=== PATIENT | female | born 1995 | race African-American/Black ===

== ENCOUNTER 2016-09-25 15:18 | Outpatient (CLI) | payer MEDICAID ==
[2016-09-25 15:52] VITALS: BP 123/77
== END 2016-09-25 17:26 | disposition home or self-care (01) ==
LOC: TRG 15:18
PROVIDERS: ATTEND Obstetrics & Gynecology
DX: O47.1 False labor at or after 37 completed weeks of gestation (principal); Z3A.40 40 weeks gestation of pregnancy
CPT/HCPCS: 59025

== ENCOUNTER 2017-07-31 09:08 | Inpatient (IN) | payer OTHER ==
[2017-07-31] MEDS ORDERED: NACL 0.9% 1000 ML 1,000 ML IV ONE ×2 (09:35→12:50)
--- NOTE | 2017-07-31 09:35 | Emergency Department Report ---
HPI - General Time Seen by Provider: 07/31/17 09:20 - HPI HPI: 22-year-old female presents to the emergency department via EMS from home with some erratic, belligerent and altered behavior. EMS has a agitated delirium protocol through their medical records secretary, leslie Israel, and therefore the patient received 5 of Haldol, 50 of Benadryl, and 5 of Versed, prior to arrival. The patient is currently sedated, sleeping, and is a poor historian. Per EMS, they asked the family if she does any drugs in the family said "yes, all of them." The patient has been seen here before and does have a history of substance abuse. ED Past Medical Hx - Past Medical History Hx Hypertension: No Hx Congestive Heart Failure: No Hx Diabetes: No Hx Deep Vein Thrombosis: No Hx Renal Disease: No Hx Sickle Cell Disease: No Hx Seizures: No Hx Asthma: No Hx COPD: No Hx HIV: No - Social History Smoking Status: Current Some Day Smoker - Medications Home Medications: Home Medications Medication Instructions Recorded Confirmed Last Taken Type No Known Home Medications [No 07/31/17 07/31/17 Unknown History Reported Home Medications] ED Review of Systems ROS: Stated complaint: AMS Other details as noted in HPI Comment: Unobtainable due to pts medical conditions Physical Exam - Physical Exam Physical Exam: GENERAL: The patient is well-developed well-nourished. HENT: Normocephalic. Atraumatic. Patient has moist mucous membranes. EYES: Pupils equal reactive to light bilaterally. NECK: Supple. Trachea is midline. CHEST/LUNGS: Clear to auscultation. There is no respiratory distress noted. HEART/CARDIOVASCULAR: Regular. There is mild to moderate tachycardia. There is no murmur. ABDOMEN: Abdomen is soft, nontender. Patient has normal bowel sounds. There is no abdominal distention. SKIN: Skin is warm and dry. NEURO: Patient is altered versus sedated. She will briefly open her eyes and withdraw to painful stimuli only. Nonverbal. Not following any commands. MUSCULOSKELETAL: There is no tenderness or deformity. There is no evidence of acute injury. ED Medical Decision Making - Lab Data Result diagrams: 07/31/17 09:39 07/31/17 09:39 - EKG Data -: EKG Interpreted by Me EKG shows normal: sinus rhythm, axis, intervals, QRS complexes, ST-T waves ( flattened or inverted t waves throughout the precordial leads) Rate: tachycardia (121 bpm) - EKG Data When compared to previous EKG there are: previous EKG unavailable Interpretation: other (sinus tachycardia, nonspecific T waves changes) - Radiology Data Radiology results: report reviewed CT HEAD WITHOUT CONTRAST: HISTORY: Altered mental status. TECHNIQUE: Sequential 2.5mm CT images. COMPARISON: 04/23/14. FINDINGS: Cerebral Parenchyma: Within normal limits. Cerebellum: Within normal limits. Brainstem: Within normal limits. Ventricles: Normal. Sella: Normal. Extra-axial spaces: Normal. Basal Cisterns: Normal. Intracranial Hemorrhage: None. Midline Shift: None. Calvarium: Normal. Sinuses: Normal. Mastoid Air Cells: Normal. Visualized Orbits: Normal. IMPRESSION: Cranial CT scan within normal limits. Transcribed By: TTR Dictated By: FRANCE LANDIN JR, MD Electronically Authenticated By: FRANCE LANDIN JR, MD Signed Date/Time: 07/31/17 1045 - Medical Decision Making Patient presents to the emergency department ulcer versus sedated however the patient did receive Haldol, Versed and Benadryl. Prior to this allegedly she was very combative and belligerent but may have been altered at that time as well. CT head does not show any bleed, shift, mass or any acute process. The majority of the patient's labs were unremarkable except for a urine drug screen positive for methamphetamines, cocaine and benzodiazepines and there is a slight elevation of her CK level. She was given 2 L of IV fluid. She has been in the emergency department for about 6 hours and has not yet become awake and alert. She will be admitted to the hospital for further evaluation and treatment. It should be noted that the patient's pre-arrival cocktail for agitated delirium is a "protocol" from their director telecommunications. - Differential Diagnosis polysubstance abuse, bipolar disorder, CVA, TIA Critical Care Time: No Critical care attestation.: If time is entered above; I have spent that time in minutes in the direct care of this critically ill patient, excluding procedure time. ED Disposition Clinical Impression: Polysubstance abuse Altered mental status Qualifiers: Altered mental status type: unspecified Qualified Code(s): R41.82 - Altered mental status, unspecified Disposition: DC-09 OP ADMIT IP TO THIS HOSP Is pt being admited?: Yes Condition: Fair Time of Disposition: 15:15
[2017-07-31 09:55] LABS: Basophils % (Auto) 0.3 % (0.0-1.8); Eosinophils # (Auto) 0.2 K/mm3 (0.0-0.4); Eosinophils % (Auto) 1.6 % (0.0-4.3); Hematocrit 37.8 % (30.3-42.9); Hemoglobin 12.9 gm/dl (10.1-14.3); Lymphocytes # (Auto) 2.5 K/mm3 (1.2-5.4); Lymphocytes % (Auto) 25.8 % (13.4-35.0); Mean Corpuscular HGB Conc 34 % (30-34); Mean Corpuscular Hemoglobin 30 pg (28-32); Mean Corpuscular Volume 87 fl (79-97); Monocytes # (Auto) 0.8 K/mm3 (0.0-0.8); Monocytes % (Auto) 8.4 % (0.0-7.3); Platelet Count 418 K/mm3 (140-440); Red Blood Count 4.37 M/mm3 (3.65-5.03); Red Cell Distribution Width 13.2 % (13.2-15.2)
[2017-07-31 10:07] LABS: Bilirubin,Urine NEG (Negative); Blood,Urine NEG (Negative); Color,Urine Yellow (Yellow); Mucus,Urine 3+ /HPF; RBC,Urine < 1.0 /HPF (0.0-6.0)
[2017-07-31 10:27] LABS: Cannabinoid Screen,Urine PRESUMPTIVE NEGATIVE; Methadone Screen,Urine PRESUMPTIVE NEGATIVE; Opiate Screen,Urine PRESUMPTIVE NEGATIVE
[2017-07-31 10:42] LABS: Alanine Aminotransferase 9 units/L (7-56); Albumin 3.6 g/dL (3.9-5); BUN/Creatinine Ratio 14; Blood Urea Nitrogen 11 mg/dL (7-17); Calcium 8.6 mg/dL (8.4-10.2); Hemolysis Index 9
[2017-07-31 10:53] LABS: Amphetamine Screen,Urine PRESUMPTIVE POSITIVE; Benzodiazepines Screen,Urine PRESUMPTIVE POSITIVE; Cocaine Screen,Urine PRESUMPTIVE POSITIVE
--- NOTE | 2017-07-31 10:53 | Cat Scan Report ---
CT HEAD WITHOUT CONTRAST: HISTORY: Altered mental status. TECHNIQUE: Sequential 2.5mm CT images. COMPARISON: 04/23/14. FINDINGS: Cerebral Parenchyma: Within normal limits. Cerebellum: Within normal limits. Brainstem: Within normal limits. Ventricles: Normal. Sella: Normal. Extra-axial spaces: Normal. Basal Cisterns: Normal. Intracranial Hemorrhage: None. Midline Shift: None. Calvarium: Normal. Sinuses: Normal. Mastoid Air Cells: Normal. Visualized Orbits: Normal. IMPRESSION: Cranial CT scan within normal limits.
--- NOTE | 2017-07-31 14:40 | History and Physical Report ---
History of Present Illness Chief complaint: Confusion History of present illness: 22 YO Female with Nicotine Dependence, Polysubstance Abuse presents to ED for evaluation. Pt is confused, lethargic and unable to provide history. Pt history provided by family who is at bedside during exam and interview. As per family, the patient has experienced confusion, and displayed erratic, belligerent and altered behavior. EMS was notified, and upon arrival the patient was found to be encephalopathic. Pt transported to [facility] for further care and evaluation. Pt seen and evaluated in ED and found to be encephalopathic. Pt initiated on CIWA protocol. Pt admitted to medical floor. Past History Past Medical History: other (Nicotine Dependence, Polysubstance Abuse) Past Surgical History: No surgical history Social history: single Family history: no significant family history, other (reviewed) Medications and Allergies Allergies Allergy/AdvReac Type Severity Reaction Status Date / Time No Known Allergies Allergy Verified 10/17/16 09:38 Home Medications Medication Instructions Recorded Confirmed Last Taken Type No Known Home Medications [No 07/31/17 07/31/17 Unknown History Reported Home Medications] Review of Systems ROS unobtainable: due to mental status Exam - Constitutional Vitals: Temp Pulse Resp BP Pulse Ox 99 F 120 H 18 122/66 99 07/31/17 09:41 07/31/17 09:41 07/31/17 09:41 07/31/17 09:41 07/31/17 09:41 General appearance: Present: mild distress - EENT Eyes: Present: miosis ENT: hearing intact, clear oral mucosa - Neck Neck: Present: supple, normal ROM - Respiratory Respiratory effort: normal Respiratory: bilateral: CTA - Cardiovascular Heart Sounds: Present: S1 & S2. Absent: rub, click - Extremities Extremities: pulses symmetrical, No edema Peripheral Pulses: within normal limits - Abdominal General gastrointestinal: Present: soft, non-tender, non-distended, normal bowel sounds Female genitourinary: Present: normal - Integumentary Integumentary: Present: clear, dry, clammy, decreased turgor - Musculoskeletal Musculoskeletal: generalized weakness - Psychiatric Psychiatric: no intact judgment & insight, no memory intact - Neurologic Neurologic: no gait normal Results - Labs CBC & Chem 7: 07/31/17 09:39 07/31/17 09:39 Labs: Abnormal lab results 07/31/17 07/31/17 07/31/17 Range/Units 09:39 09:39 09:39 [place] % (Auto) 8.4 H (0.0-7.3) % Sodium 146 H (137-145) mmol/L Chloride 107.7 H (98-107) mmol/L Total Creatine Kinase (30-135) units/L Albumin 3.6 L (3.9-5) g/dL Acetaminophen < 5.0 L (10.0-30.0) ug/mL 07/31/17 Range/Units 09:39 [place] % (Auto) (0.0-7.3) % Sodium (137-145) mmol/L Chloride (98-107) mmol/L Total Creatine Kinase 917 H (30-135) units/L Albumin (3.9-5) g/dL Acetaminophen (10.0-30.0) ug/mL Assessment and Plan - Patient Problems (1) Encephalopathy Current Visit: Yes Status: Acute Plan to address problem: CT head, neuro checks, ciwa protocol, seizure precautions, supportive care. (2) Polysubstance abuse Current Visit: Yes Status: Acute Plan to address problem: CIWA protocol, banana bag, (3) Psychosis Current Visit: Yes Status: Acute Qualifiers: Psychosis type: brief psychotic disorder Qualified Code(s): F23 - Brief psychotic disorder Plan to address problem: CT head, Psych consulted, (4) Nicotine dependence Current Visit: Yes Status: Acute Qualifiers: Substance use status: in withdrawal Plan to address problem: supportive care, (5) DVT prophylaxis Current Visit: Yes Status: Acute Plan to address problem: SCD to BLE while in bed.
[2017-07-31] MEDS ORDERED: ZOFRAN IV PRN (14:41)
[2017-07-31] MEDS ORDERED: SODIUM CHLORIDE FLUSH SYRINGE 10 ML IV PRN (14:41)
[2017-07-31] MEDS ORDERED: PROVENTIL IH PRN (14:41)
[2017-07-31] MEDS ORDERED: TYLENOL PO PRN (14:41)
[2017-07-31] MEDS ORDERED: ATIVAN IV PRN (14:44)
[2017-07-31] MEDS ORDERED: VITAMIN B-1 100 MG, FOLVITE 1 MG, INFUVITE 10 ML in NACL 0.9% 1000 ML 1,000 ML IV ONE (14:44)
[2017-07-31] MEDS ORDERED: NACL 0.9% 1000 ML 1,000 ML ONE (15:43)
[2017-07-31] MEDS: SODIUM CHLORIDE FLUSH SYRINGE 10 ML IV SCH (22:16)
[2017-08-01] MEDS: SODIUM CHLORIDE FLUSH SYRINGE 10 ML IV SCH ×2 (10:05→21:45)
--- NOTE | 2017-08-01 12:42 | Discharge Summary ---
Providers - Providers Date of Admission: 07/31/17 14:41 Date of discharge: 08/02/17 Attending physician: ROBERT SMART Primary care physician: JAN LINDQUIST Hospitalization Reason for admission: altered level of consciousness/polysubstance abuse Condition: Good Pertinent studies: CT head without contrast no acute abnormality Hospital course: Patient was admitted through emergency room with altered level of consciousness secondary to multiple recreational drug use Patient was initially admitted and is symptomatically Symptoms significantly improved Encephalopathy symptoms resolved 2 days comfortable alert awake oriented 3 Jan signs reviewed stable [id number] evaluation physical examination done by me.- Prior to Discharge is unremarkable Patient advised to follow behavioral health upon discharge from rehabilitation Discharge diagnosis; Metabolic encephalopathy Polysubstance abuse Tobacco abuse Disposition: DC-01 TO HOME OR SELFCARE Time spent for discharge: 31 min Core Measure Documentation - Palliative Care Palliative Care/ Comfort Measures: Not Applicable - Core Measures Any of the following diagnoses?: none Exam - Constitutional Vitals: Temp Pulse Resp BP Pulse Ox 98 F 101 H 18 113/60 97 08/01/17 07:31 08/01/17 08:14 08/01/17 07:31 08/01/17 07:31 08/01/17 07:31 General appearance: Present: no acute distress, well-nourished - EENT Eyes: Present: PERRL, EOM intact - Neck Neck: Present: supple, normal ROM - Respiratory Respiratory effort: normal Respiratory: negative: rales, rhonchi, wheezing - Cardiovascular Rhythm: regular Heart Sounds: Present: S1 & S2 - Extremities Extremities: no ischemia, No edema - Abdominal General gastrointestinal: Present: soft, non-tender, non-distended, normal bowel sounds - Integumentary Integumentary: Present: clear, warm - Musculoskeletal Musculoskeletal: strength equal bilaterally - Psychiatric Psychiatric: cooperative - Neurologic Neurologic: moves all extremities Plan Activity: advance as tolerated, fall precautions Diet: regular Special Instructions: smoking cessation Additional Instructions: Counseling done, advised smoking cessation, strongly advised to quit recreational drug use. Follow outpatient behavioral health as needed Follow up with: JAN LINDQUIST MD [Primary Care Provider] - 3-5 Days Prescriptions: Nicotine [Habitrol] 21 mg TD DAILY #30 patch
--- NOTE | 2017-08-01 20:42 | Progress Note ---
Assessment and Plan Assessment and plan: --Metabolic encephalopathy; significantly improved Continue supportive care --Polysubstance abuse; counseling done advised to quit recreational drug use Verbalized understanding --Ongoing tobacco abuse; smoking cessation counseling done --DVT prophylaxis with Lovenox closely monitor the patient and adjust management Possible discharge to group home tomorrow if stable History Interval history: patient stable for discharge awaiting placementstable for discharge She was admitted with altered level of consciousness secondary to multiple Recreational drug use Patient is more alert and awake and responding appropriately today No new complaints Initially discharge the patient however the family did not want to pick her up Case management reviewed and recommended group home placement Patient has no new complaints Vital signs stable Hospitalist Physical - Constitutional Vitals: Temp Pulse Resp BP Pulse Ox 98.9 F 69 14 117/88 99 08/01/17 16:31 08/01/17 16:31 08/01/17 16:31 08/01/17 16:31 08/01/17 16:31 General appearance: Present: no acute distress, well-nourished - EENT Eyes: Present: PERRL, EOM intact - Neck Neck: Present: supple, normal ROM - Respiratory Respiratory effort: normal Respiratory: negative: rales, rhonchi, wheezing - Cardiovascular Rhythm: regular Heart Sounds: Present: S1 & S2 - Extremities Extremities: no ischemia, No edema Peripheral Pulses: within normal limits - Abdominal General gastrointestinal: soft, non-tender, non-distended, normal bowel sounds - Integumentary Integumentary: Present: clear, warm - Psychiatric Psychiatric: appropriate mood/affect, cooperative - Neurologic Neurologic: CNII-XII intact, moves all extremities Results - Labs CBC & Chem 7: 07/31/17 09:39 07/31/17 09:39 Labs: Laboratory Last Values WBC 9.5 K/mm3 (4.5-11.0) 07/31/17 09:39 RBC 4.37 M/mm3 (3.65-5.03) 07/31/17 09:39 Hgb 12.9 gm/dl (10.1-14.3) 07/31/17 09:39 Hct 37.8 % (30.3-42.9) 07/31/17 09:39 MCV 87 fl (79-97) 07/31/17 09:39 MCH 30 pg (28-32) 07/31/17 09:39 MCHC 34 % (30-34) 07/31/17 09:39 RDW 13.2 % (13.2-15.2) 07/31/17 09:39 Plt Count 418 K/mm3 (140-440) 07/31/17 09:39 Lymph % (Auto) 25.8 % (13.4-35.0) 07/31/17 09:39 [place] % (Auto) 8.4 % (0.0-7.3) H 07/31/17 09:39 Eos % (Auto) 1.6 % (0.0-4.3) 07/31/17 09:39 Baso % (Auto) 0.3 % (0.0-1.8) 07/31/17 09:39 Lymph # 2.5 K/mm3 (1.2-5.4) 07/31/17 09:39 [place] # 0.8 K/mm3 (0.0-0.8) 07/31/17 09:39 Eos # 0.2 K/mm3 (0.0-0.4) 07/31/17 09:39 Baso # 0.0 K/mm3 (0.0-0.1) 07/31/17 09:39 Seg Neutrophils % 63.9 % (40.0-70.0) 07/31/17 09:39 Seg Neutrophils # 6.1 K/mm3 (1.8-7.7) 07/31/17 09:39 Sodium 146 mmol/L (137-145) H 07/31/17 09:39 Potassium 3.6 mmol/L (3.6-5.0) 07/31/17 09:39 Chloride 107.7 mmol/L (98-107) H 07/31/17 09:39 Carbon Dioxide 25 mmol/L (22-30) 07/31/17 09:39 Anion Gap 17 mmol/L 07/31/17 09:39 BUN 11 mg/dL (7-17) 07/31/17 09:39 Creatinine 0.8 mg/dL (0.7-1.2) 07/31/17 09:39 Estimated GFR > 60 ml/min 07/31/17 09:39 BUN/Creatinine Ratio 14 % 07/31/17 09:39 Glucose 97 mg/dL (65-100) 07/31/17 09:39 Calcium 8.6 mg/dL (8.4-10.2) 07/31/17 09:39 Total Bilirubin 0.80 mg/dL (0.1-1.2) 07/31/17 09:39 AST 34 units/L (5-40) 07/31/17 09:39 ALT 9 units/L (7-56) 07/31/17 09:39 Alkaline Phosphatase 66 units/L (35-129) 07/31/17 09:39 Ammonia 56.0 umol/L (25-60) 07/31/17 09:39 Total Creatine Kinase 917 units/L (30-135) H 07/31/17 09:39 Troponin T < 0.010 ng/mL (0.00-0.029) 07/31/17 09:39 Total Protein 6.4 g/dL (6.3-8.2) 07/31/17 09:39 Albumin 3.6 g/dL (3.9-5) L 07/31/17 09:39 Albumin/Globulin Ratio 1.3 % 07/31/17 09:39 TSH 1.070 mlU/mL (0.270-4.200) 07/31/17 09:39 HCG, Qual Negative (Negative) 07/31/17 09:39 Urine Color Yellow (Yellow) 07/31/17 09:38 Urine Turbidity Clear (Clear) 07/31/17 09:38 Urine pH 5.0 (5.0-7.0) 07/31/17 09:38 Ur Specific [place] 1.025 (1.003-1.030) 07/31/17 09:38 Urine Protein 100 mg/dl mg/dL (Negative) 07/31/17 09:38 Urine Glucose (UA) Neg mg/dL (Negative) 07/31/17 09:38 Urine Ketones Neg mg/dL (Negative) 07/31/17 09:38 Urine Blood Neg (Negative) 07/31/17 09:38 Urine Nitrite Neg (Negative) 07/31/17 09:38 Urine Bilirubin Neg (Negative) 07/31/17 09:38 Urine Urobilinogen 2.0 mg/dL (<2.0) 07/31/17 09:38 Ur Leukocyte Esterase Neg (Negative) 07/31/17 09:38 Urine WBC (Auto) 3.0 /HPF (0.0-6.0) 07/31/17 09:38 Urine RBC (Auto) < 1.0 /HPF (0.0-6.0) 07/31/17 09:38 U Epithel Cells (Auto) 2.0 /HPF (0-13.0) 07/31/17 09:38 Urine Mucus 3+ /HPF 07/31/17 09:38 Urine Opiates Screen Presumptive negative 07/31/17 09:38 Urine Methadone Screen Presumptive negative 07/31/17 09:38 Acetaminophen < 5.0 ug/mL (10.0-30.0) L 07/31/17 09:39 Ur Barbiturates Screen Presumptive negative 07/31/17 09:38 Ur Phencyclidine Scrn Presumptive negative 07/31/17 09:38 Ur Amphetamines Screen Presumptive positive 07/31/17 09:38 U Benzodiazepines Scrn Presumptive positive 07/31/17 09:38 Urine Cocaine Screen Presumptive positive 07/31/17 09:38 U Marijuana (THC) Screen Presumptive negative 07/31/17 09:38 Drugs of Abuse Note Disclamer 07/31/17 09:38 Plasma/Serum Alcohol < 0.01 % (0-0.07) 07/31/17 09:39
[2017-08-02 09:25] VITALS: BP 112/70
[2017-08-02] MEDS: SODIUM CHLORIDE FLUSH SYRINGE 10 ML IV SCH (12:09)
== END 2017-08-02 14:40 | disposition home or self-care (01) | DRG 72 ==
LOC: ED 09:08 → 3A 14:41
PROVIDERS: ADMIT Internal Medicine; ATTEND Internal Medicine
DX: G93.41 Metabolic encephalopathy (principal); F19.10 Other psychoactive substance abuse, uncomplicated; F17.200 Nicotine dependence, unspecified, uncomplicated; F29 Unspecified psychosis not due to a substance or known physiological condition; Z71.51 Drug abuse counseling and surveillance of drug abuser; Z71.6 Tobacco abuse counseling
CPT/HCPCS: 36415; 70450; 80053; 80307; 80320; 81001; 82140; 82550; 84443; 84484; 84703; 85025; 93005; 93010; 96365; 99406; G0480; J3411; J7030

== ENCOUNTER 2018-05-21 14:50 | Outpatient (CLI) | payer OTHER, MEDICAID ==
--- NOTE | 2018-05-21 15:51 | History and Physical Report ---
History of Present Illness Date of examination: 05/21/18 Date of admission: 05/21/18 Chief complaint: SIUP at 38 weeks and 1 day gestation with elevated BP. History of present illness: Patient is a 22 year old , LNP unknown, EDC 06/03/18 at 38 weeks and 1 day gestation who was sent from [facility] for elevated BP. She is an inmate over there and is seen weekly by the solderer torch. This AM, during her routine visit, she complained of having headache, visual disturbances, and occasional dizziness x 3 days. Her initial BP was 155/100. In triage, BP was 134/60. She denies any contraction, fluid leakage or bleeding. She reports good movement. She has a history of prescription drug abuse, cocaine during her last . The baby was born haloprosencephaly, caudal regression, club foot, VSD, horseshoe kidney. His spina bifida was repaired after the delivery. Now, he has hypertension and seizure. 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 Family/Genetic History: other (First infant had spina bifida, seizure.) Social history: smoking, IV drug use, other (Inmate at [facility], mental health issues (bipolar, schizo).) - Obstetrical History Expected Date of Delivery: 06/03/18 Actual Gestation: 38 Week(s) 1 Day(s) : 2 Para: 1 Number of Living Children: 1 #1 year: 2,017 Birthweight: 2.07 kg Method of Delivery: Gestational age at delivery: 37 Complications: other ( had IUGR, haloprosencephaly, spina bifida, caudal regression, club foot, VSD, horseshoe kidney.) Medications and Allergies Allergies Allergy/AdvReac Type Severity Reaction Status Date / Time No Known Allergies Allergy Verified 10/17/16 09:38 Home Medications Medication Instructions Recorded Confirmed Last Taken Type Nicotine [Habitrol] 21 mg TD DAILY #30 patch 08/02/17 Unknown Rx - Vital Signs Vital signs: Vital Signs Pulse Pulse Ox 102 H 98 05/21/18 15:13 05/21/18 15:13 Temp Pulse Resp BP Pulse Ox 98.4 F 100 H 16 134/63 97 05/21/18 15:44 05/21/18 15:44 05/21/18 15:44 05/21/18 15:44 05/21/18 15:18 - Physical Exam Cardiovascular: Normal S1, Normal S2 Lungs: Positive: Clear to auscultation Vulva: both: normal Deep Tendon Reflex Grade: Normal +2 - Obstetrical FHR: category 1 Results Result Diagrams: 05/21/18 15:30 05/21/18 15:30 All other labs normal. Assessment and Plan - Patient Problems (1) 37 weeks gestation of Current Visit: Yes Status: Acute (2) Gestational HTN Current Visit: Yes Status: Acute Plan to address problem: Admit to labor floor. IV hydration. Toxemia labs. labs. monitoring. OB sono for BPP, BRADLY. BP monitoring. (3) Previous section Current Visit: Yes Status: Acute Plan to address problem: Patient is for repeat c/section. If BP becomes unstable, patient becomes symptomatic, or labs abnormal, will deliver patient.
[2018-05-21 16:11] LABS: Hematocrit 37.6 % (30.3-42.9); Mean Corpuscular HGB Conc 35 % (30-34); Mean Corpuscular Volume 91 fl (79-97); Platelet Count 271 K/mm3 (140-440); Red Blood Count 4.13 M/mm3 (3.65-5.03); Red Cell Distribution Width 13.6 % (13.2-15.2)
[2018-05-21 16:23] LABS: Bacteria,Urine 1+ /HPF (Negative); Bilirubin,Urine NEG (Negative); Blood,Urine NEG (Negative); Color,Urine Yellow (Yellow); Mucus,Urine FEW /HPF; Protein,Urine <15 mg/dL mg/dL (Negative); Urobilinogen,Urine < 2.0 mg/dL (<2.0); WBC,Urine < 1.0 /HPF (0.0-6.0)
[2018-05-21 16:27] LABS: Alanine Aminotransferase 9 units/L (7-56); Uric Acid 4.3 mg/dL (3.5-7.6)
[2018-05-21 17:13] LABS: Amphetamine Screen,Urine PRESUMPTIVE NEGATIVE; Benzodiazepines Screen,Urine PRESUMPTIVE NEGATIVE; Cannabinoid Screen,Urine PRESUMPTIVE NEGATIVE; Cocaine Screen,Urine PRESUMPTIVE NEGATIVE; Methadone Screen,Urine PRESUMPTIVE NEGATIVE; Opiate Screen,Urine PRESUMPTIVE NEGATIVE
--- NOTE | 2018-05-21 17:14 | Ultrasound Report ---
FINAL REPORT EXAM: US OB BPP WO NON-STRESS HISTORY: estimated weight TECHNIQUE: Grayscale and color doppler ultrasound of the fetus was performed for biophysical profile . PRIORS: None. FINDINGS: A single, live intrauterine fetus is present with a heart rate of 149 beats per minute. The placenta is anterior in location. Biophysical profile score of 8 out of 8 was noted. Scores of 2 out of 2 were given for breathin g movements, movements, posterior and tone and qualitative amniotic fluid volume. IMPRESSION: Normal biophysical profile.
--- NOTE | 2018-05-21 17:17 | Ultrasound Report ---
FINAL REPORT EXAM: US OB FOLLOW UP HISTORY: estimated weight TECHNIQUE: Grayscale and color doppler ultrasound of the fetus was performed for growth. PRIORS: None. FINDINGS: A single, live intrauterine fetus is present in cephalic presentation with a heart rate of 145 beats per minute. The placenta is grade 3 and anterior in location. Biparietal diameter: 37 weeks and 3 days. Head circumference: 38 weeks and 1 day. Abdominal circumference: 38 weeks and 5 days. Femur length: 37 weeks and 6 days. Estimated gestational age based on ultrasound criteria is 38 weeks and 0 days with an DESHAWN of 06/04/19 19. Estimated weight is at the 68th percentile. Estimated weight is 3457 grams. IMPRESSION: Live intrauterine fetus measuring at 38 weeks and 0 days gestational age with an DESHAWN of 06/04/2018. E stimated weight at 3457 grams.
[2018-05-21] MEDS ORDERED: TYLENOL PO PRN (17:45)
[2018-05-21] MEDS ORDERED: NORMODYNE PO SCH (18:50)
[2018-05-21 19:08] VITALS: BP 111/75
== END 2018-05-21 19:26 | disposition home or self-care (01) ==
LOC: EEVIPCON 14:50 → TRG 14:50
PROVIDERS: ATTEND Obstetrics & Gynecology
DX: O47.1 False labor at or after 37 completed weeks of gestation (principal); Z3A.38 38 weeks gestation of pregnancy; Z87.891 Personal history of nicotine dependence; O13.3 Gestational [pregnancy-induced] hypertension without significant proteinuria, third trimester
CPT/HCPCS: 36415; 76816; 76819; 80307; 81001; 82565; 83615; 84450; 84460; 84550; 85027; 86706; 87517; 87806; 96360